=== PATIENT | female | born 1980 | race African-American/Black ===

== ENCOUNTER 2020-07-08 08:31 | Outpatient (CLI) | payer OTHER, SELFPAY ==
--- NOTE | 2020-07-08 | ECHO_ITS ---
Patient Info Name: Gita Allison Age: 39 years : 1980 Gender: Female Ht: 63 in Wt: 221 lbs BSA: 2.16 m2 HR: 65 bpm BP: 121 / 85 mmHg Heart Rhythm: Sinus Rhythm Technical Quality: Good Exam Date: 07/08/2020 9:11 AM Exam Location: [facility] Patient Status: Outpatient Admit Date: 07/08/2020 Staff Ordering Physician: ColetteYolanda MD Clean Up Person: Belgica Membreno RDCS Attending Provider: ColetteYolanda MD Referring Physician: Rob TOSCANO; Exam Type: CA echo doppler color flow Study Info Indications - MURMUR EVAL aortic valve pathology Complete two-dimensional, color flow and Doppler transthoracic echocardiogram is performed. Summary 1. Complete two-dimensional, color flow and Doppler transthoracic echocardiogram is performed. 2. Normal left ventricular size and thickness with good contractility of all segments. Normal diastolic function. No segmental wall motion abnormalities. The estimated ejection fraction is 60-65%. 3. Normal valve function and structure, with only trace mitral and tricuspid regurgitation. 4. Normal sinus rhythm. Left Ventricle Left ventricular chamber dimension is normal. Left ventricular systolic function is normal, estimated at 60-65%. There is no increased left ventricular wall thickness. Left ventricular septal wall motion is normal. The left ventricular diastolic function is normal. Right Ventricle Right ventricular chamber dimension is normal. Right ventricular systolic function is normal. Left Atria Left atrial chamber dimension is normal. Right Atria Right atrial chamber dimension is normal. Aortic Valve The aortic valve is trileaflet. There is no aortic valve sclerosis. There is no aortic valve stenosis. There is no aortic valve regurgitation. Pulmonic Valve The pulmonic valve is normal. There is no pulmonic valve stenosis. There is trace pulmonic regurgitation. Mitral Valve The mitral valve has normal leaflets. There is no mitral valve stenosis. There is no mitral valve regurgitation. Tricuspid Valve The tricuspid valve leaflets are normal. There is no significant tricuspid valve stenosis. There is trace tricuspid valve regurgitation. No pulmonary hypertension, estimated pulmonary arterial systolic pressure is 31 mmHg. Pericardium/Pleural The pericardium appears normal. There is no pericardial effusion. Inferior Vena Cava Normal inferior vena cava with >50% collapse upon inspiration consistent with Empty right atrial pressure, 10 mmHg. Aorta The aortic root size at the sinus of Valsalva is normal. The prox ascending aorta size is normal. Left Ventricular Outflow Tract Name Value Normal LVOT 2D LVOT Diameter 2.0 cm LVOT Doppler LVOT Peak Gradient 6 mmHg LVOT Mean Gradient 4 mmHg LVOT VTI 27 cm LVOT VTI/AV VTI Ratio 0.8 LVOT Stroke Volume 83 ml LVOT CO 16.9 l/min LVOT CI
== END 2020-07-08 08:32 | disposition home or self-care (01) ==
PROVIDERS: PCP Internal Medicine; Visit Provider Internal Medicine
DX: R01.1 Cardiac murmur, unspecified (principal); I10 Essential (primary) hypertension
CPT/HCPCS: 93306

== ENCOUNTER 2020-11-04 15:50 | Outpatient (CLI) | payer OTHER, SELFPAY ==
--- NOTE | ~2020-11-04 | US_ITS ---
EXAMINATION: US pelvic complete w TV DATE: 11/04/2020 16:38 INDICATION: Uterine fibroids, heavy periods TECHNIQUE: Multiple transabdominal and endovaginal sonographic images of the pelvis were obtained. COMPARISON: 07/22/2017 FINDINGS: The uterus measures 10.1 x 7.3 x 8.4 cm. There are multiple fibroids of the uterus. The lar gest is an intramural fibroid measuring 3.6 cm in the posterior body of the uterus. The endometrial c omplex measures 9 mm. The right ovary measures 3.1 x 1.8 x 1.6 cm. The left ovary measures 2.4 x 1.6 x 1.6 cm. There is normal vascular flow in the ovaries. There is no free fluid in the pelvis. IMPRESSION: 1. Fibroid uterus. Reviewed, dictated and finalized at location A. IMPRESSION: 1. Fibroid uterus.
== END 2020-11-04 15:51 | disposition home or self-care (01) ==
LOC: ANHIMG 15:55
PROVIDERS: PCP Internal Medicine; Visit Provider Obstetrics & Gynecology
DX: D25.1 Intramural leiomyoma of uterus (principal); D25.9 Leiomyoma of uterus, unspecified
CPT/HCPCS: 76830; 76856

== ENCOUNTER → 2022-05-13 09:51 | Outpatient (CLI) | payer BC, SELFPAY ==
--- NOTE | ~2022-05-13 | US_ITS ---
EXAMINATION: US pelvic complete w TV DATE: 05/13/2022 11:09 INDICATION: History of uterine fibroids Comparison:Ultrasound dated 11/04/2020 TECHNIQUE: Multiple transabdominal and endovaginal sonographic images of the pelvis performed. FINDINGS: The uterus measures 9.6 x 8.8 x 9.1 cm. There are multiple uterine masses, largest measurin g 3.6 x 3.4 x 2.8 cm, compatible with fibroids. The endometrial complex measures 6 mm. The right ovary measures 3.6 x 2.5 x 1.6 cm and the left ovary measures 3.1 x 1.9 x 1.5 cm. There ar e small follicles in each ovary. Normal doppler signal in both ovaries. There is no free fluid in the pelvis. There are no abnormal masses seen on either side. IMPRESSION: 1. Enlarged uterus containing multiple fibroids, largest measuring up to 3.6 cm. Reviewed, dictated and finalized at location A. IMPRESSION: 1. Enlarged uterus containing multiple fibroids, largest measuring up to 3.6 cm .
--- NOTE | ~2022-05-13 | MM_ITS ---
EXAMINATION: MM screening hilario BI w oksana HISTORY: Screening TECHNIQUE: Craniocaudal and mediolateral oblique 3-D tomosynthesis images were obtained and synthetic 2-D images were generated. CAD analysis was submitted and interpreted. COMPARISON: No prior mammogram is available for comparison at this institution. BREAST PARENCHYMAL COMPOSITION: There are scattered areas of fibroglandular density. FINDINGS: There are focal asymmetries in the lower inner quadrant of the right breast, middle third. There is no mammographic evidence for malignancy in the left breast. IMPRESSION: 1. Focal asymmetries lower inner quadrant of the right breast. 2. Additional spot compression and mediolateral views with possible follow-up breast ultrasound recom mended. BI-RADS Category 0: Incomplete: Needs additional imaging evaluation. Reviewed, dictated and finalized at location A. IMPRESSION: 1. Focal asymmetries lower inner quadrant of the right breast. 2. Additional spot compression and mediolateral views with possible follow-up b reast ultrasound recommended. BI-RADS Category 0: Incomplete: Needs additional imaging evaluation.
== END ==
PROVIDERS: PCP Internal Medicine; Visit Provider Obstetrics & Gynecology Gynecology
DX: Z12.31 Encounter for screening mammogram for malignant neoplasm of breast (principal); D25.9 Leiomyoma of uterus, unspecified; R92.8 Other abnormal and inconclusive findings on diagnostic imaging of breast
CPT/HCPCS: 76830; 76856; 77063; 77067

== ENCOUNTER → 2022-05-27 07:54 | Outpatient (CLI) | payer BC, SELFPAY ==
--- NOTE | ~2022-05-27 | MM_ITS ---
CORRECTED REPORT This report was recreated on 05/27/2022 at 13:41 CDT. Original report was . 05/27/2022 sef EXAMINATION: MM diagnostic hilario RT w oksana; US breast RT limited HISTORY: Right breast focal asymmetry on screening mammogram TECHNIQUE: Additional 3-D tomosynthesis images of the right breast were performed and synthetic 2-D images were generated. CAD analysis was submitted and interpreted. High resolution limited right breast ultrasound was performed. COMPARISON: 05/13/2022 FINDINGS: MAMMOGRAPHIC FINDINGS: Right breast focal asymmetry disperses with spot compression. There is no suspicious mass, calcification, or architectural distortion. ULTRASOUND: There is no evidence of focal abnormal solid or cystic mass in the vicinity of the mammographic finding in question. IMPRESSION: 1. No mammographic or sonographic evidence of malignancy. 2. Recommend routine screening mammography in one year. BI-RADS Category 1: Negative Reviewed, dictated and finalized at location A. MTDD
== END ==
PROVIDERS: PCP Internal Medicine; Visit Provider Obstetrics & Gynecology Gynecology
DX: R92.8 Other abnormal and inconclusive findings on diagnostic imaging of breast (principal)
CPT/HCPCS: 76642; 77061; 77065; G0279

== ENCOUNTER → 2022-10-03 14:30 | Outpatient (CLI) | payer BC, SELFPAY ==
--- NOTE | ~2022-10-03 | US_ITS ---
EXAMINATION: US thyroid DATE: 10/03/2022 14:47 INDICATION: Left thyroid nodule. TECHNIQUE: Multiple ultrasound images of the thyroid were obtained. COMPARISON: None. FINDINGS: The right thyroid lobe measures 3.8 x 1.7 x 1.4 cm. The left thyroid lobe measures 3.5 x 1.5 x 1.5 c m. There is normal echotexture and echogenicity throughout the thyroid gland. No discrete nodules id entified. Normal vascular flow is present. IMPRESSION: 1. Normal thyroid. Reviewed, dictated and finalized at location A. 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 Normal thyroid.
== END ==
PROVIDERS: PCP Internal Medicine; Visit Provider Internal Medicine
DX: E04.1 Nontoxic single thyroid nodule (principal)
CPT/HCPCS: 76536

== ENCOUNTER 2023-03-03 10:27 | Outpatient (CLI) | payer BC, SELFPAY ==
[2023-03-03 11:06] LABS: Hematocrit 37.9 % (37.0-47.0); Hemoglobin 12.1 g/dL (12.0-15.0); Mean Corpuscular HGB Conc 31.9 g/dl (32-36); Mean Corpuscular Hemoglobin 26.1 pg (26-34); Mean Corpuscular Volume 81.9 fl (80-100); Mean Platelet Volume 9.4 fl (7.4-10.4); Platelet Count Result 323 k/mm3 (150-375); Red Blood Count 4.63 M/mm3 (4.2-5.4); Red Cell Distribution Width 16.3 % (11.5-14.5); White Blood Count 5.9 K/mm3 (4.5-10.0)
== END 2023-03-03 10:28 | disposition home or self-care (01) ==
LOC: ANHLAB 10:29
PROVIDERS: PCP Internal Medicine; Visit Provider Obstetrics & Gynecology
DX: N93.9 Abnormal uterine and vaginal bleeding, unspecified (principal)
CPT/HCPCS: 36415; 85027

== ENCOUNTER → 2023-03-07 13:37 | Outpatient (CLI) | payer BC, SELFPAY ==
--- NOTE | ~2023-03-07 | US_ITS ---
EXAMINATION: US pelvic complete w TV DATE: 03/07/2023 14:03 INDICATION: Uterine fibroids. TECHNIQUE: Multiple transabdominal and endovaginal sonographic images of the pelvis were obtained. COMPARISON: 03/03/2023, images only; 05/13/2022 FINDINGS: Uterus: 15.4 x 9.6 x 10.1 cm. Multiple rounded heterogeneous areas, consistent with intramural and love bserosal fibroids, largest measuring 4.4 cm. Endometrial complex measures 8 mm. Right Ovary: Not visualized. No adnexal mass. Left Ovary: Not visualized. No adnexal mass. There is no free fluid in the pelvis. IMPRESSION: Multiple uterine fibroids, the largest measures 4.4 cm. Bilateral ovaries not visualized. Reviewed, dictated and finalized at location K. IMPRESSION: Multiple uterine fibroids, the largest measures 4.4 cm. Bilateral ovaries not v isualized.
== END ==
PROVIDERS: PCP Internal Medicine; Visit Provider Obstetrics & Gynecology
DX: D25.9 Leiomyoma of uterus, unspecified (principal)
CPT/HCPCS: 76830; 76856

== ENCOUNTER 2023-05-08 09:40 | Emergency (ER) | payer BC, SELFPAY ==
[2023-05-08 10:08] VITALS: BP 160/97; PULSE 70; RESP 18; TEMP 36.6; O2SAT 98
[2023-05-08 10:11] LABS: Appearance Urine Clear (Clear); Bilirubin Urine Negative (Negative); Blood Urine Trace-intact (Negative); Color Urine Yellow (Yellow); Glucose Urine UA Negative (Negative); Ketones Urine Negative (Negative); Leukocyte Esterase Ur Negative LEU/UL (Negative); Nitrate Urine Negative (Negative); Protein Urine Negative (Negative); Specific Grav Ur 1.015 (1.001-1.035); Urobilinogen Urine 0.2 mg/dL (<2.0)
[2023-05-08 10:15] LABS: Bacteria Urine None Seen /hpf; Non Pathogenic Casts 0-2; Squamous Epithelial Cell Urine None seen /hpf (Few); WBC Urine 0-5 /hpf
[2023-05-08 10:16] LABS: Add Urine Microscopic? YES
--- NOTE | 2023-05-08 10:17 | PC.NURSE ---
Campos catheter #16 with 10ml balloon inserted without difficulty. 1000ml clear yellow urine obtained. Catheter clamped to prevent bladder spasms
--- NOTE | 2023-05-08 10:26 | ED.GENADULT ---
HPI - General Adult General Chief complaint: Urogenital-Female Stated complaint: unable to void Time Seen by Provider: 05/08/23 09:42 History of Present Illness HPI narrative: Patient is a 42-year-old female who presents ER with concerns for urinary retention. She woke up this morning tried to go bathroom was unable to. She tried to drink more water in an effort to urinate and is caused her significant discomfort in suprapubic region. She has had this happen to her intermittently and she is retaining urine only in the mornings. She does report that she took an Ct a couple days ago but no additional antihistamines. She has had no urinary frequency urgency or dysuria. She has history of uterine prolapse. She supposed to have a surgery in the near future by both urology and gynecology. Patient tried pushing the prolapse backend to urinate and tried having sex in order to urinate and did not work. Related Data Home Medications Medication Instructions Recorded Confirmed L norgest/E estradiol-E estrad 1 tablet PO DAILY 03/03/23 03/03/23 0.15 mg-30 mcg (84)/10 mcg(7) tabs,3mos (Seasonique) amlodipine 5 mg tablet 5 mg PO DAILY 03/03/23 03/03/23 hydrochlorothiazide 12.5 mg tablet 12.5 mg PO DAILY 03/03/23 03/03/23 Allergies Allergy/AdvReac Type Severity Reaction Status Date / Time dicloxacillin Allergy Unknown Unknown Verified 05/08/23 10:28 doxycycline Allergy Unknown Unknown Verified 05/08/23 10:28 morphine Allergy Unknown Unknown Verified 05/08/23 10:28 peach Allergy Unknown RASH Verified 05/08/23 10:28 BEES Allergy Unknown HIVES Uncoded 05/08/23 10:28 Review of Systems Review of Systems: All systems reviewed & are unremarkable except as noted in HPI and below Constitutional: Constitutional: Denies chills, Denies fatigue and Denies fever(s) Gastrointestinal: Gastrointestinal: Reports abdominal pain, Denies nausea and Denies vomiting Genitourinary: Genitourinary: Denies nocturia, Denies dysuria and Denies urinary incontinence Comments: Positive urinary retention [facility] Past Medical History Medical History (Updated 05/08/23 @ 11:32 by Xu Shepherd MD) BMI 38.0-38.9,adult History of Hodgkin's lymphoma History of HPV infection History of uterine fibroid Hypertension Surgical History Surgical History H/O LEEP 2016 Family History Family History Father Hypertension Mother Hypertension Sibling Sleep apnea Hypertension Social History Social History (Updated 04/05/23 @ 14:17 by ALONSO Hanson) Smoking status: Never smoker Second hand tobacco smoke exposure: No Alcohol intake: current Substance use: never Substance use type: does not use Lack of Transportation: No Lack of Food: Never True Current Housing: I Have Housing Concerned About Future Housing: No Difficulty Paying Gas/Electric Bills: No Difficulty Paying for Meds: No Currently Unemployed: No Education: Master's Degree or Higher Difficulty w/ Childcare or Family Care: No Living arrangements: with family 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 HEAD: Normocephalic, atraumatic. CHEST: Clear to auscultation. No respiratory distress. HEART: Regular rate and rhythm. Normal peripheral pulses. ABDOMEN: Soft, nontender, nondistended. EXTREMITIES: Normal range of motion. No edema. SKIN: Warm, dry, no rash. NEURO: Alert and oriented x3. PSYCH: Normal mood and affect. Course Course Emergency Course: Patient improved after catheterization revealed greater than 600 mL of ur
[2023-05-08 11:34] VITALS: BP 136/78; PULSE 65; RESP 20; O2SAT 100
== END 2023-05-08 12:40 | disposition home or self-care (01) ==
PROVIDERS: Emergency Provider Emergency Medicine; PCP Internal Medicine
DX: R33.9 Retention of urine, unspecified (principal); I10 Essential (primary) hypertension; Z85.71 Personal history of Hodgkin lymphoma
CPT/HCPCS: 81001; 81003; 81025; 99283

== ENCOUNTER → 2023-05-30 11:10 | Outpatient (CLI) | payer BC, SELFPAY ==
--- NOTE | ~2023-05-30 | MM_ITS ---
EXAMINATION: MM screening [facility] BI w oksana HISTORY: Screening mammogram TECHNIQUE: Craniocaudal and mediolateral oblique 3-D tomosynthesis images were obtained and synthetic 2-D images were generated. CAD analysis was submitted and interpreted. COMPARISON: 05/27/2022, 05/13/2022 BREAST PARENCHYMAL COMPOSITION: There are scattered areas of fibroglandular density. FINDINGS: No suspicious mass, calcification, or architectural distortion are identified in either blanca ast to suggest malignancy. There has been no suspicious interval change. IMPRESSION: 1. No mammographic evidence of malignancy. 2. Recommend routine screening mammography in one year. BI-RADS Category 1: Negative Reviewed, dictated and finalized at location A.
== END ==
PROVIDERS: PCP Obstetrics & Gynecology; Referring Provider Internal Medicine; Visit Provider Obstetrics & Gynecology Gynecology
DX: Z12.31 Encounter for screening mammogram for malignant neoplasm of breast (principal)
CPT/HCPCS: 77063; 77067

== ENCOUNTER 2023-06-07 13:56 | Outpatient (CLI) | payer BC, SELFPAY ==
--- NOTE | 2023-06-07 14:36 | ECG_ITS ---
Measurements Intervals [place] Rate: 68 P: 45 WI: 147 QRS: -4 QRSD: 92 T: 11 QT: 394 QTc: 422 Interpretive Statements SINUS RHYTHM VOLTAGE CRITERIA FOR LVH BORDERLINE T WAVE ABNORMALITY- INFERIOR LEADS BASELINE ARTIFACT- I, III, AVR, AVL, AVF, V5-V6 BORDERLINE ECG NO PREVIOUS ECG AVAILABLE FOR COMPARISON Electronically Signed On 06-07-2023 14:50:43 [place]ON by Alex Trevino D.O.
[2023-06-07 15:07] LABS: Basophils Percent Auto 0.4 % (0.2-1.2); Eosinophils Percent Auto 0.4 % (0-4.4); Hemoglobin 12.3 g/dL (12.0-15.0); Immature Granulocyte Absolute 0.01 K/mm3 (0.00-0.031); Immature Granulocyte Percent A 0.1 % (0-0.5); Lymphocytes Absolute Auto 3.45 K/mm3 (0.9-3.2); Lymphocytes Percent Auto 46.3 % (18.3-44.2); Mean Corpuscular HGB Conc 31.5 g/dl (32-36); Mean Corpuscular Hemoglobin 26.7 pg (26-34); Mean Corpuscular Volume 84.8 fl (80-100); Mean Platelet Volume 8.9 fl (7.4-10.4); Monocytes Absolute Auto 0.4 K/mm3 (0.1-0.6); Monocytes Percent Auto 5.6 % (2.6-8.5); Neutrophils Absolute Auto 3.5 K/mm3 (1.3-6.7); Neutrophils Percent Auto 47.2 % (45.5-73.1); Platelet Count Result 322 k/mm3 (150-375); Red Cell Distribution Width 13.9 % (11.5-14.5); White Blood Count 7.5 K/mm3 (4.5-10.0)
[2023-06-07 15:15] LABS: Alanine Aminotransferase 21 U/L (6-35); Albumin Level 4.2 g/dL (3.5-5.1); Alkaline Phosphatase 58 U/L (38-126); Anion Gap 9 mmol/L (8-16); Aspartate Amino Transferase 27 U/L (14-36); Bilirubin,Total 0.3 mg/dL (0.2-1.3); Blood Urea Nitrogen 13 mg/dL (7-17); Calcium 9.2 mg/dL (8.4-10.2); Carbon Dioxide 21 mmol/L (22-30); Chloride 104 mmol/L (98-107); Estimated Glomerular Filt Rate > 60; Glucose 92 mg/dL (65-110); Potassium 3.5 mmol/L (3.4-5.0); Sodium 134 mmol/L (137-145)
[2023-06-07 15:16] LABS: INR 0.9; Prothrombin Time 12.5 Seconds (11.1-14.7)
[2023-06-07 15:17] LABS: Partial Thromboplastin Time 23.9 SECONDS (22.3-36.8)
== END 2023-06-07 13:57 | disposition home or self-care (01) ==
LOC: ANHSURGERY 14:03
PROVIDERS: PCP Internal Medicine; Visit Provider Urology
DX: Z01.812 Encounter for preprocedural laboratory examination (principal); Z01.810 Encounter for preprocedural cardiovascular examination; N81.2 Incomplete uterovaginal prolapse; I10 Essential (primary) hypertension
CPT/HCPCS: 36415; 80053; 85025; 85610; 85730; 86850; 86900; 86901; 93005

== ENCOUNTER 2023-06-19 01:19 | Day surgery (SDC) | payer BC, SELFPAY ==
--- NOTE | 2023-06-07 13:29 | PC.NURSE ---
PRE-OP INSTRUCTIONS, PLEASE READ CAREFULLY Report to the Outpatient Waiting Room, entrance under the green pavilion located off [facility], at time _0600_ on date _06/19/23_. Planned Procedure Time: _0730_. PACK A SMALL OVERNIGHT BAG AND LEAVE IN THE CAR Time changes happen often and if your time is changed the preop area will call you the afternoon before. - You and your visitor will be asked to self-screen and do not enter if you have any COVID symptoms. - A mask is optional within the hospital at this time. -VISITING HOURS 8AM-8PM Patients may have clear liquids (water, carbonated beverages, clear teas, apple juice) until 3 hours prior to surgery (0430 AM) with a maximum of 20 ounces. - No food from midnight until time of surgery Take the following medications with a SIP of water the morning of surgery: _AMLODIPINE_ DO NOT STOP ANY OF YOUR OTHER PRESCRIPTION MEDICATIONS PRIOR TO SURGERY ?EXCEPT THE FOLLOWING Medications to discontinue per physician ___NONE , Date to take last dose Please no make-up, nail colombian, hairspray, perfume, deodorant, or body powder the day of surgery. No jewelry (including any body piercings) or valuables the day of surgery, leave them at home. Please take a shower or bath the night before, or the morning of, surgery with an antibacterial soap. Wear comfortable, loose fitting clothing. - Jewelry must be removed prior to entering the operating room. Rings and piercings that are not removed may be cut off. - The hospital will not accept responsibility for valuables. - Please leave all valuables, including medications, at home the day of surgery. If you are going home after surgery, a licensed hazmat tanker driver must drive you home. - NO public transportation without another adult if you receive anesthesia. - We recommend that an adult stay with you for 24 hours following discharge. - We also recommend that you do not drive, make important decision, drink alcoholic beverages, or take any drugs that were not prescribed by your health care provider for at least 24 hours after your discharge time. Follow any additional instructions given to you from your surgeon. If you or anyone in your household have experienced Covid symptoms in the past week, please notify your surgeon or the nurse liaison at the phone number below for possible testing. Instructions given to _PATIENT_and asked if any additional questions and then verbalized understanding. Patient advised to call surgeon office or pre surgery nurse liaison [phone] if any additional questions.
[2023-06-07 14:17] VITALS: BP 128/88; PULSE 72; RESP 20; TEMP 36.4; O2SAT 100; BMI 39.3
--- NOTE | 2023-06-17 10:43 | PM.IMHP ---
H&P: HPI History of Present Illness Date/Time: 06/17/23 10:43 Chief Complaint: uterine prolapse Narrative: she has dysfunctional uterine bleeding and a 14 week size uterus. She has uterine prolapse as well. She desires a combined procedure including hysterectomy and prolapse procedure. She does not have stress incontinence. Review of Systems Review of Systems: All systems reviewed & are unremarkable except as noted in HPI and below PMFSH Past Medical History Medical History BMI 38.0-38.9,adult History of Hodgkin's lymphoma History of HPV infection History of uterine fibroid Hypertension Surgical History Surgical History H/O LEEP 2015 Family History Family History Father Hypertension Mother Hypertension Sibling Sleep apnea Hypertension Social History Social History Smoking status: Never smoker Second hand tobacco smoke exposure: No Alcohol intake: current Drinks per week: 3 Substance use: never Substance use type: does not use Lack of Transportation: No Lack of Food: Never True Current Housing: I Have Housing Concerned About Future Housing: No Difficulty Paying Gas/Electric Bills: No Difficulty Paying for Meds: No Currently Unemployed: No Education: Master's Degree or Higher Difficulty w/ Childcare or Family Care: No Living arrangements: with family Additional living arrangements comments: LIVES WITH SPOUE NAYELI DE LEON [phone] 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 Gender identity (if verbalized by the patient): Female Sexual Orientation (if Verbalized by the Patient): Straight or Heterosexual Spiritual care concerns: No Meds Home Medications and Allergies Home Medications Medication Instructions Recorded Confirmed Type L norgest/E estradiol-E estrad 1 tablet PO DAILY 03/03/23 06/07/23 History 0.15 mg-30 mcg (84)/10 mcg(7) tabs,3mos (Seasonique) amlodipine 5 mg tablet 5 mg PO DAILY 03/03/23 06/07/23 History hydrochlorothiazide 12.5 mg tablet 12.5 mg PO DAILY 03/03/23 06/07/23 History scopolamine base 1 mg over 3 days 1 patch transdermal ONCE PRN 06/17/23 Rx transdermal patch nausea and vomiting #1 ea Allergies Allergy/AdvReac Type Severity Reaction Status Date / Time dicloxacillin Allergy Unknown Nausea and Verified 06/08/23 11:45 Vomiting doxycycline Allergy Unknown Nausea and Verified 06/08/23 11:45 Vomiting morphine Allergy Unknown Nausea and Verified 06/08/23 11:45 Vomiting peach Allergy Unknown RASH Verified 06/08/23 11:45 BEES Allergy Unknown HIVES Uncoded 06/08/23 11:45 Exam Narrative: Obese no acute distress alert and oriented x3 uterine prolapse to the introitus Assessment and Plan Assessment and plan (1) Incomplete uterine prolapse: Code(s): N81.2 - Incomplete uterovaginal prolapse Status: Acute Assessment and Plan: plan for robotic sacral colpopexy. Understands the risks of bleeding, infection, recurrence, damage to surrounding organs urinary tract, dyspareunia, postoperative voiding dysfunction including incontinence retention, dyspareunia, hip and leg pain. she agrees to proceed
--- NOTE | 2023-06-18 22:44 | PM.IMHP ---
H&P: HPI History of Present Illness Date/Time: 06/18/23 22:44 Chief Complaint: Heavy periods Narrative: She is a 42 y/oG0 with known fibroid uterus causing severe menorrhagia. She has opted for definitive treatment with hysterectomy. Pap smear normal 10/2021. She also has vaginal pressure and feels bulging at introitus. She has had a normal endometrial biopsy. She is aware procedure will make her sterile which she is fine with and does not desire children. She declines IUD and uterine fibroid embolization. She also has symptomatic pelvic relaxation and will be getting a combined sacrocolpopexy with Dr. Garcia. Review of Systems Review of Systems: All systems reviewed & are unremarkable except as noted in HPI and below Cardiovascular: Cardiovascular: Reports no additional cardiovascular complaints, Denies chest pain and Denies dyspnea Respiratory: Respiratory: Reports no additional respiratory complaints and Denies dyspnea Gastrointestinal: Gastrointestinal: Reports abdominal pain, Denies change in bowel habits, Denies diarrhea, Denies nausea and Denies vomiting Genitourinary: Genitourinary: Reports pelvic pain Musculoskeletal: Musculoskeletal: Reports back pain Integumentary/Breasts: Skin/Breast: Reports system reviewed and no additional complaints, except as docu Neurologic: Reports system reviewed and no additional complaints, except as documented PMF Past Medical History Medical History BMI 38.0-38.9,adult History of Hodgkin's lymphoma History of HPV infection History of uterine fibroid Hypertension Surgical History Surgical History H/O LEE 2016 Family History Family History Father Hypertension Mother Hypertension Sibling Sleep apnea Hypertension Social History Social History Smoking status: Never smoker Second hand tobacco smoke exposure: No Alcohol intake: current Drinks per week: 3 Substance use: never Substance use type: does not use Lack of Transportation: No Lack of Food: Never True Current Housing: I Have Housing Concerned About Future Housing: No Difficulty Paying Gas/Electric Bills: No Difficulty Paying for Meds: No Currently Unemployed: No Education: Master's Degree or Higher Difficulty w/ Childcare or Family Care: No Living arrangements: with family Additional living arrangements comments: LIVES WITH SPOIFRAH DE LEON [phone] 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 Gender identity (if verbalized by the patient): Female Sexual Orientation (if Verbalized by the Patient): Straight or Heterosexual Spiritual care concerns: No Meds Home Medications and Allergies Home Medications Medication Instructions Recorded Confirmed Type L norgest/E estradiol-E estrad 1 tablet PO DAILY 03/03/23 06/07/23 History 0.15 mg-30 mcg (84)/10 mcg(7) tabs,3mos (Seasonique) amlodipine 5 mg tablet 5 mg PO DAILY 03/03/23 06/07/23 History hydrochlorothiazide 12.5 mg tablet 12.5 mg PO DAILY 03/03/23 06/07/23 History hydrocodone 5 mg-acetaminophen 325 1 tablet PO Q4H PRN pain #20 tabs 06/17/23 06/17/23 Rx mg tablet scopolamine base 1 mg over 3 days 1 patch transdermal ONCE PRN 06/17/23 Rx transdermal patch nausea and vomiting #1 ea Allergies Allergy/AdvReac Type Severity Reaction Status Date / Time dicloxacillin Allergy Unknown Nausea and Verified 06/08/23 11:45 Vomiting doxycycline Allergy Unknown Nausea and Verified 06/08/23 11:45 Vomiting morphine Allergy Unknown Nausea and Verified 06/08/23 11:45 Vomiting peach Allergy Unknown RASH Verified 06/08/23 11:45 BEES Allergy Unknown HIVES Uncoded 06/08/23 11:45 Exam Const: Orientation/consciousness: or
[2023-06-19] VITALS (10 sets, daily range): BP systolic 127–154; BP diastolic 72–104; PULSE 69–99; RESP 16–20; TEMP 36–37; O2SAT 97–100
[2023-06-19] MEDS: ACETAMINOPHEN 500 MG TABLET 1000 MG PO (06:35)
[2023-06-19] MEDS: KETOROLAC 15 MG/ML VIAL (*BKC) IV PUSH ×2 (06:35→16:22)
--- NOTE | 2023-06-19 06:46 | WPDANESEPPF ---
Anes - Initial Pre Proc Eval Procedure: Operation Date: 06/19/23 07:30 Proposed Procedures p Robotic Sacrocolpopexy, Urethral Sling - Ajay Garcia MD s Robotic Assisted Laparoscopic Supracervical Hysterectomy with Bilateral Salpingectomy - Abraham Brown MD Date/Time: 06/19/23 06:46 Surgeon: Ajay Garcia MD Pre Op Diagnosis: complete uterovag prolapse Patient Data Age: 42 Gender: F Height: 1.6 m Weight: 100.8 kg Last Vital Signs Temp 36.4 C 06/07/23 14:17 Pulse 72 06/07/23 14:17 Resp 20 06/07/23 14:17 BP 128/88 06/07/23 14:17 Pulse Ox 100 06/07/23 14:17 O2 Del Method Room Air 06/07/23 14:17 Allergies Allergy/AdvReac Type Severity Reaction Status Date / Time dicloxacillin Allergy Unknown Nausea and Verified 06/08/23 11:45 Vomiting doxycycline Allergy Unknown Nausea and Verified 06/08/23 11:45 Vomiting morphine Allergy Unknown Nausea and Verified 06/08/23 11:45 Vomiting peach Allergy Unknown RASH Verified 06/08/23 11:45 BEES Allergy Unknown HIVES Uncoded 06/08/23 11:45 Home Medications Medication Instructions Recorded Confirmed Type L norgest/E estradiol-E estrad 1 tablet PO DAILY 03/03/23 06/07/23 History 0.15 mg-30 mcg (84)/10 mcg(7) tabs,3mos (Seasonique) amlodipine 5 mg tablet 5 mg PO DAILY 03/03/23 06/07/23 History hydrochlorothiazide 12.5 mg tablet 12.5 mg PO DAILY 03/03/23 06/07/23 History hydrocodone 5 mg-acetaminophen 325 1 tablet PO Q4H PRN pain #20 tabs 06/17/23 06/17/23 Rx mg tablet scopolamine base 1 mg over 3 days 1 patch transdermal ONCE PRN 06/17/23 Rx transdermal patch nausea and vomiting #1 ea Patient hx anesthesia problems: none Family hx anesthesia problems: none Results Review: All pre-operative results and documents have been reviewed as part of the pre-operative evaluation. FOR[facility]LY [facility] Past Medical History Medical History BMI 38.0-38.9,adult History of Hodgkin's lymphoma History of HPV infection History of uterine fibroid Hypertension Surgical History Surgical History H/O LEEP 2015 Family History Family History Father Hypertension Mother Hypertension Sibling Sleep apnea Hypertension Social History Social History Smoking status: Never smoker Second hand tobacco smoke exposure: No Alcohol intake: current Drinks per week: 3 Substance use: never Substance use type: does not use Lack of Transportation: No Lack of Food: Never True Current Housing: I Have Housing Concerned About Future Housing: No Difficulty Paying Gas/Electric Bills: No Difficulty Paying for Meds: No Currently Unemployed: No Education: Master's Degree or Higher Difficulty w/ Childcare or Family Care: No Living arrangements: with family Additional living arrangements comments: LIVES WITH JAIME DE LEON [phone] 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 Gender identity (if verbalized by the patient): Female Sexual Orientation (if Verbalized by the Patient): Straight or Heterosexual Spiritual care concerns: No Anes - Eval Final PreProcedure Day of Procedure 06/19/23 06:46 Patient weight: obese Heart: regular rate and rhythm Lungs: clear to auscultation Airway: Mallampati scale class II Neurological: alert and oriented Last oral intake: >/= 8 hours ASA classification: III Emergent: no Anesthetic plan: proceed Anesthesia type and monitoring: general ETT and standard monitoring Results Review: All pre-operative results and documents have been reviewed as part of the pre-operative evaluation. Informed Consent: The patient's anesthetic plan and its attendant risks and benefits were discussed with the patient/
[2023-06-19] MEDS: LACTATED RINGERS 1,000 ML 30 ML IV CONT ×2 (06:50→14:11)
--- NOTE | 2023-06-19 07:16 | WPDHPUPDATE1 ---
History and Physical Update Update Date/Time: 06/19/23 07:16 History and Physical has been reviewed, including an updated exam of the patient. There are NO changes in the patient's condition. Risks, benefits, and alternatives have been discussed and questions answered. Patient agrees to proceed with procedure.
[2023-06-19] MEDS: metroNIDAZOLE 500 MG/ISO 100ML 500 MG/100 ML BAG 100 MG IVPB ×2 (07:30→18:23)
[2023-06-19] MEDS: ceFAZolin 2 GM/D5W 50 ML 2 GM/50 ML BAG IVPB (07:30)
[2023-06-19] MEDS: BUPIVACAINE/EPINEPHRINE 0.5% 50 ML VIAL 30 ML INFILTRATE (07:59)
[2023-06-19] MEDS: VASOPRESSIN INJ 20 UNITS/ML VIAL SUB-Q (09:13)
[2023-06-19] MEDS: fentaNYL CITRATE INJ (*CRX) 100 MCG/2 ML VIAL 25 MCG IV PUSH ×5 (14:20→15:00)
--- NOTE | 2023-06-19 15:22 | W.PM.PROC2 ---
Procedure Note - Detailed Date of Procedure 06/19/23 Pre-op Diagnosis complete uterovag prolapse Post-op Diagnosis Same Procedure Performed Robotic assisted laparoscopic sacral colpopexy Cystoscopy Surgeon Ajay Garcia MD Travel Writer [place] Anesthesia General Indications A woman with uterine prolapse without stress incontinence. She desires surgical correction. She is here for the above. She has quite an enlarged uterus. She understands risks of bleeding, infection, diskitis, damage to surrounding organs, bowel injury, bowel obstruction, mesh related complications including exposure and extrusion, postoperative voiding dysfunction including incontinence and retention, need for ancillary procedures, dyspareunia, recurrence of prolapse, she also understands implications regarding prolapse and young woman. She also understands the risks of hernia as we have a large specimen the ends be extracted, she also understands the risk of other perioperative intraoperative postoperative complications. She agrees to proceed. Findings See below Description of Procedure She was correctly identified. Informed consent obtained. She from the operating room. She was given general anesthesia. She was given appropriate perioperative antibiotics. She was placed a low lithotomy position. Pressure points were padded. A time-out performed. I marked out the skin 3 fingerbreadths cephalad to the umbilicus. I anesthetized the skin. I incised the skin. I dissected down to the fascia. I grasped the fascia with Christiana clamps. I entered the fascia sharply in a Pruett type technique. I placed sutures for later fascial closure. I placed a midline trocar. I examined the abdomen. There is no sign of any injury. Under direct vision I placed 2 additional trocars in the right upper quadrant and 2 additional trocars the left upper quadrant. She was placed in steep Trendelenburg. The robot was docked. Her j2ee engineer completed their portion of the procedure. Please see that operative report for details. Of note the uterus was quite enlarged. It was cut into multiple different pieces. It was completely extracted before I started my portion of the surgery I then sat at the console. The Sizer in the vagina created plane on the anterior and posterior vaginal wall. I took great care not to injure the vagina, bladder, or rectum. The tissue on the posterior vaginal wall was a bit more friable than the tissue on the anterior vaginal wall but I felt appropriate. I introduced the mesh into the abdomen. I sewed the anterior leaflet of mesh on the anterior vaginal wall. I sewed the posterior leaflet of mesh on the posterior vaginal wall. This was done with several sutures of 2 0 [place]-Krishna. I reflected the colon laterally. I opened the posterior peritoneum over the sacral promontory. There were few spots of apparent endometriosis in the deep pelvis. I carried this into the cul-de-sac. I freed up the edges for later retroperitonealization. I located the anterior longitudinal ligament the sacrum. I cleaned off all fatty tissues. I then tensioned my mesh appropriately. I did a vaginal exam the bedside. I assured prolapse reduction without undue tension. I then sewed the proximal leaflet of mesh onto the anterior longitudinal ligament of the sacrum with 5 sutures of 2 0 [place]-Krishna. I then used a 2 0 Monocryl to completely and meticulously retroperitonealized all mesh. I allowed the colon to go back to its normal anatomic location. There is no sign of any impingement. The specimen was then removed. All ports removed. Additional fascial sutures were placed and the fascia stitches were tied down completely closing the fascia. Skin was closed with Monocryl and surgical glue. Examination revealed excellent support of her prolapse. I then performed cystoscopy. There was no tumors or surgical artifact. Guidewires were placed up both ureters to document patency. i cut t
--- NOTE | 2023-06-19 15:30 | PC.NURSE ---
This patient, Gita Allison, was received from PACU on 06/19/23 at 1530. Patient/family oriented to unit policies and routines
[2023-06-19] MEDS: ceFAZolin 1 GM/NS 50 ML 1 GM/50 ML BAG IVPB (16:00)
[2023-06-19] MEDS: hydroCHLOROthiazide 12.5 MG CAPSULE PO (16:24)
[2023-06-19] MEDS: KCL 20 MEQ/D5/0.45% SOD CHL 1,000 ML 100 ML IV CONT (16:29)
[2023-06-19] MEDS: HYDROcodone/acetaminophen (*CRX) 5-325 MG TABLET 1 TAB PO ×2 (18:43→22:07)
--- NOTE | 2023-06-19 21:47 | W.PM.PROC2 ---
Procedure Note - Detailed Date of Procedure 06/19/23 Pre-op Diagnosis symptomatic fibroid uterus incomplete uterovag prolapse Post-op Diagnosis Same Procedure Performed Robotic assisted supracervical hysterectomy with bilateral salpingectomy. Surgeon Abraham Brown MD Talent Acquisition Assistant Ajay Garcia Anesthesia General Indications Patient with known fibroid uterus and menorrhagia causing anemia. She request definitive treatment with hysterectomy. Findings Large fibroid uterus with multiple intramural and a subserosal fibroid. Normal ovaries bilaterally. Description of Procedure After informed consent was obtained she was taken to the operating room and general endotracheal anesthesia was administered. She was placed in low lithotomy position. An exam under anesthesia was performed. Uterus enlarged, no adnexal masses palpated. She was and prepped and draped in sterile fashion. Camops catheter placed in bladder. Attention was turned to the vagina speculum was inserted. Single-tooth tenaculum placed on anterior lip of the cervix the uterus sounded to 11 cm. The cervix was dilated. A size 10 uterine manipulator was inserted and secured. A size 3.0 colp cup was secured in the vagina. A Campos catheter was inserted into the bladder. At this time the robotic ports were placed by Dr. Garcia. Once robots placed then attention was turned to surgery console. The right round ligament was ligated with vessel sealer and the anterior leaf of the broad ligament was dissected anteriorly. The bladder dissected off of the uterus. The fallopian tube was ligated with vessel sealer and the ovarian ligament was ligated. The ascending uterine vessels on the right were cauterized. The uterine vessels were ligated. Attention was turned to the left round ligament which was ligated and the anterior leaf of the broad ligament was dissected anteriorly. The rest of the vesicouterine peritoneum was dissected off of the uterus. The left fallopian tube was ligated from the broad ligament and the ovarian ligament was ligated. The ascending uterine vessels were ligated with the vessel sealer. The uterine arteries were ligated. The cervix was cauterized. The uterus was then cut into mutiple pieces, 20 pieces, and placed in multiple endocath bags with the assistance of Dr. Garcia. The specimen in the endocatch bags were removed through the extended supraumbilical incision. At this time Dr. Garcia completed his procedure. Estimated Blood Loss 50 Urine Output -350.0 Drains No Packing No Pathology Yes (fibroid uterus in multiple pieces and right and left fallopian tube) Complications No immediate complications Condition Stable Disposition Floor [facility] Billing Surgery - Charge Forward: Surgery Billing
[2023-06-19] MEDS: KETOROLAC 30 MG/ML VIAL (*BKC) IV PUSH (22:07)
[2023-06-20] MEDS: metroNIDAZOLE 500 MG/ISO 100ML 500 MG/100 ML BAG 100 MG IVPB
[2023-06-20] MEDS: ceFAZolin 1 GM/NS 50 ML 1 GM/50 ML BAG IVPB ×2 (01:06→09:13)
[2023-06-20] MEDS: HYDROcodone/acetaminophen (*CRX) 5-325 MG TABLET 1 TAB PO ×4 (01:06→13:16)
[2023-06-20] MEDS: KETOROLAC 30 MG/ML VIAL (*BKC) IV PUSH (04:17)
[2023-06-20 04:20] VITALS: BP 127/74; PULSE 80; RESP 18; TEMP 36.5; O2SAT 97
[2023-06-20 08:15] VITALS: BP 119/82; PULSE 81; RESP 16; TEMP 36.8; O2SAT 100
--- NOTE | 2023-06-20 09:05 | PM.GYNPNOP ---
FOREST RESOURCES PROFESSOR - A/P Assessment and plan (1) Status post hysterectomy: Code(s): Z90.710 - Acquired absence of both cervix and uterus Status: Acute Assessment and Plan: Encourage ambulation. Advance diet. Post op care. If adequate ambulation/pain control/ late today then may discharge later today or tomorrow. Postoperative Procedures: Procedures Operation Date: 06/19/23 07:30 Actual Procedure Side Surgeon p Robotic Sacrocolpopexy Ajay Garcia MD s Robotic Assisted Laparoscopic Supracervical Hysterectomy with Bilateral Salpingectomy Bilateral Abraham Brown MD Time Spent With Patient Time: Total time spent is greater than 50% in coordination of care (as documented) at patient's floor/unit and/or counseling patient: Time with patient: less than 15 minutes FOREST RESOURCES PROFESSOR- PN:Subj Post-Op Subjective Date/time seen: 06/20/23 09:05 Interval history: Pain is improved from yesterday. Has not ambulated. No leg pain or chest pain or SOB. No flatus. Tolerated liquids. Exam Const: General: no acute distress Resp: Effort & Inspection: normal respiratory effort Auscultation: clear to auscultation bilaterally Cardio: Rate: regular rate GI: Inspection: normal to inspection Other: incisions intact no drainage, appropriate tender, hypoactive bowel sounds. Neuro: General: oriented to person, oriented to place and oriented to time Extrem: General: normal to inspection and no calf tenderness Psych: Mental Status: mental status grossly normal FOREST RESOURCES PROFESSOR - PN: Obj Data Vital Signs Vital Signs: Vital Signs - 24 hr 06/19/23 14:11 06/19/23 14:25 06/19/23 14:40 Temperature 97.4 F L Pulse Rate 87 73 78 Respiratory Rate 20 20 18 Blood Pressure 130/72 143/88 H 139/88 Pulse Oximetry 100 100 100 Oxygen Delivery Simple Face Mask Simple Face Mask Room Air Oxygen Flow Rate 8 8 06/19/23 14:55 06/19/23 15:10 06/19/23 15:30 Temperature 98.0 F Pulse Rate 80 78 95 Respiratory Rate 16 Blood Pressure 143/95 H 146/90 H 154/97 H Pulse Oximetry 97 98 100 Oxygen Delivery Room Air Room Air Room Air Oxygen Flow Rate 06/19/23 19:00 06/19/23 22:18 06/20/23 04:20 Temperature 98.2 F 98.6 F 97.7 F Pulse Rate 99 96 80 Respiratory Rate 18 18 18 Blood Pressure 140/94 H 145/82 H 127/74 Pulse Oximetry 98 98 97 Oxygen Delivery Oxygen Flow Rate Intake/Output Intake/Output: Intake & Output 06/17/23 06/18/23 06/19/23 06/20/23 23:59 23:59 23:59 23:59 Intake Total 700 Output Total 1100 650 Balance -400 -650 Meds/Results Medications: Active Medications Generic Name Dose Route Start Last Admin Trade Name Freq PRN Reason Stop Dose Admin Acetaminophen 650 mg 06/19/23 15:22 Acetaminophen 325 Mg Tablet PO Q4H PRN Mild Pain (1-3) or Fever Hydrocodone Bitart/Acetaminophen 1 tab 06/19/23 15:22 06/20/23 04:16 Hydrocodone/Acetaminophen (*Crx) 5-325 Mg Tablet PO 1 tab Q4H PRN Administration Pain Rated 4-5 Amlodipine Besylate 5 mg 06/20/23 09:00 Amlodipine Besylate [address] [facility] Cephalexin HCl 500 mg 06/20/23 17:00 Cephalexin 500 Mg Capsule PO QID OLGA LIDIA Diphenhydramine HCl 25 mg 06/19/23 15:22 Diphenhydramine Hcl Inj 50 Mg/Ml Vial IV PUSH Q6H PRN Itching Docusate Sodium 100 mg 06/20/23 09:00 Docusate Sodium 100 Mg Capsule PO DAILY OLGA LIDIA Enoxaparin Sodium 30 mg 06/20/23 09:00 Enoxaparin 30 Mg/0.3 Ml Syringe SUB-Q DAILY OLGA LIDIA Hydrochlorothiazide 12.5 mg 06/19/23 15:35 06/19/23 16:24 Hydrochlorothiazide 12.5 Mg Capsule PO 12.5 mg DAILY OLGA LIDIA Administration Potassium Chloride/Dextrose/Sod Cl 1,000 mls @ 100 mls/hr 06/19/23 15:22 06/19/23 16:29 Kcl 20 Meq/D5/0.45% Sod Chl IV CONT 100 mls/hr .Q10H OLGA LIDIA Administration Metronidazole 500 mg in 100 mls @ 100 mls/hr 06/19/23 16:00 06/20/23 00:00 Flagyl 500 Mg/Iso Soln 100 Ml IVPB 100 mls/hr Q8H OLGA LIDIA Administration
[2023-06-20] MEDS: hydroCHLOROthiazide 12.5 MG CAPSULE PO (09:13)
[2023-06-20] MEDS: amLODIPine BESYLATE 5 MG TABLET PO (09:13)
[2023-06-20] MEDS: ENOXAPARIN 30 MG/0.3 ML SYRINGE SUB-Q (09:13)
[2023-06-20] MEDS: DOCUSATE SODIUM 100 MG CAPSULE PO (09:13)
[2023-06-20] MEDS: SIMETHICONE 80 MG TAB.CHEW PO ×2 (09:15→12:43)
[2023-06-20 11:01] VITALS: PULSE 81; RESP 16; O2SAT 100
[2023-06-20] MEDS: KETOROLAC 10 MG TABLET PO (13:15)
--- NOTE | 2023-06-20 14:10 | WPDANESPN ---
Anes - Prog Note Post-Op Date/Time: 06/20/23 14:10 Cardiovascular status: normal Respiratory status: normal Airway patency: baseline Mental status: baseline Post-Op hydration status: normal Vital Signs: Last Vital Signs Temp 36.8 C 06/20/23 08:15 Pulse 81 06/20/23 11:01 Resp 16 06/20/23 11:01 BP 119/82 06/20/23 08:15 Pulse Ox 100 06/20/23 11:01 O2 Del Method Room Air 06/20/23 11:01 O2 Flow Rate 8 06/19/23 14:25 Pain Score (VAS): 10 I/O: Intake & Output 06/19/23 06/20/23 06/20/23 23:59 07:59 15:59 Intake Total 712 33 2262 Output Total 1000 650 550 Balance -850 -600 450 Post-procedural complaints: none Patient Feedback: Patient satisfied with anesthetic care.
[2023-06-20] MEDS: BISACODYL 10 MG SUPPOSITORY RECTAL (15:59)
== END 2023-06-20 16:16 | disposition home or self-care (01) ==
LOC: ANHSURGERY 09:43 → ANHOB2 15:26
PROVIDERS: PCP Internal Medicine; Referring Provider Obstetrics & Gynecology; Visit Provider Urology
PROC: (CPT 57425; principal; 2023-06-19 07:30)
PROC: (CPT 58542; 2023-06-19 07:30)
DX: N81.3 Complete uterovaginal prolapse (principal); D25.1 Intramural leiomyoma of uterus; D25.2 Subserosal leiomyoma of uterus; I10 Essential (primary) hypertension; E66.9 Obesity, unspecified; Z68.39 Body mass index [BMI] 39.0-39.9, adult; Z79.891 Long term (current) use of opiate analgesic; Z85.71 Personal history of Hodgkin lymphoma; Z87.410 Personal history of cervical dysplasia
CPT/HCPCS: 57425; 58542; S2900; 88307; 99199; A9270; C1758; C1769; C1781; J0330; J0690; J1100; J1170; J1650; J1836; J1885; J2250; J2405; J2704; J3010; J3480; J7030; J7120